=== PATIENT | female | born 1980 | race Caucasian/White ===

== ENCOUNTER → 2020-04-22 | Outpatient (CLI) | payer OTHER ==
[~2020-04-22] MED LIST: CANDESARTAN-HC1 EAC1 PO; COLACE100 MG PO; ENBREL50 MG/1 M1 SQ; METOPROLOL TART25 MG PO; NAPROXEN250 MG PO; NORCO 5-325 TA1 EACH PO; PROTONIX40 MG PO
== END ==
LOC: KOH-I 04-07 08:45 → EMI 11:00
DX: M51.16 Intervertebral disc disorders with radiculopathy, lumbar region (principal); M47.26 Other spondylosis with radiculopathy, lumbar region; M48.061 Spinal stenosis, lumbar region without neurogenic claudication; M47.817 Spondylosis without myelopathy or radiculopathy, lumbosacral region; M51.27 Other intervertebral disc displacement, lumbosacral region
CPT/HCPCS: 72148